=== PATIENT | female | born 1990 | race Caucasian/White ===

== ENCOUNTER 2017-04-29 11:18 | Emergency (ER) | payer MEDICAID, OTHER ==
[~2017-04-29] VITALS: Ht 182.9 cm; Wt 88.1 kg
[~2017-04-29 11:18] MED LIST: ALPR.5 PO; FAMO1TAB37 PO; MAGICADU2 SWISH-SWAL; PENI500T PO; ZOFR4TAB PO
[2017-04-29 11:21] VITALS: BP 137/77; PULSE 87; RESP 16; TEMP 98.6; O2SAT 100
[2017-04-29] MEDS ORDERED: SODIUM CHLOR 0.9% 1000 ML INJ 1,000 ML IV ONE (11:40)
[2017-04-29] MEDS ORDERED: KETOROLAC TROMETHAMINE 30 MG/ML (IVP) VIAL IVP ONE (11:45)
[2017-04-29] MEDS ORDERED: diphenhydrAMINE HCL 50 MG/ML VIAL IVP ONE (11:45)
[2017-04-29] MEDS ORDERED: ACETAMINOPHEN 325 MG TAB PO ONE (11:45)
[2017-04-29] MEDS ORDERED: SODIUM CHLORIDE 0.9% FLUSH 10 ML FLUSH IVF PRN (11:45)
[2017-04-29] MEDS ORDERED: PROCHLORPERAZINE INJ 10 MG/2 ML VIAL IVP ONE (11:45)
--- NOTE | 2017-04-29 11:56 | PD ---
HPI Chief Complaint: Headache Time Seen by Provider: 11:25 Travel History International Travel<30 days: No Contact w/Intl Traveler<30days: No Traveled to known affect area: No History of Present Illness HPI The patient is a 26-year-old female who presents to the emergency department for headache. 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 Headache is located the posterior aspect of the head, left occipital region, radiating to left paravertebral muscles. She notes limited range of motion with turning the head to the left, but denies any difficulty with flexion or extension of the neck. She denies any difficulty turning the head to the right. She does note mild photophobia and sensitivity to sounds. She does complain of mild nausea, secondary to , but denies any vomiting. She denies any history of migraines. The headache came on slowly while driving, initially was associated with sensitivity to light. She denies any fever, chills, or sweats. She denies any cough and cold symptoms. The headache waxes and wanes, worse in the morning, improves by 1:00 in the afternoon, but will return around 6 PM. She also notes sensitivity when looking at computer screens. She denies any history of brain tumors. She is currently is 7 weeks , has not taken any medications for her headache. [facility] Past Medical History Anxiety: Yes Depression: Yes ?: LMP: 03/13/17 : 2 Para: 1 Miscarriage: 1 Social History Alcohol Use: Yes Tobacco Use: No Substance Use: No Allergies-Medications (Allergen,Severity, Reaction): Coded Allergies: No Known Allergies (Unverified Adverse Reaction, Unknown, 04/29/17) Reported Meds & Prescriptions Reported Meds & Active Scripts Active Reported Plus Iron 29-1 mg ( Vit-Iron Carbonyl) 29 Mg Iron-1 Mg Tab 1 Tab PO DAILY Review of Systems Except as stated in HPI: all other systems reviewed are Neg General / Constitutional: No: Fever Eyes: Positive: Photophobia HENT: Positive: Neck Pain Cardiovascular: No: Chest Pain or Discomfort Respiratory: No: Shortness of Breath Gastrointestinal: Positive: Nausea, No: Vomiting, Abdominal Pain Musculoskeletal: No: Weakness Neurologic: Positive: Headache, No: Weakness, Dizziness, Focal Abnormalities, Change in Mentation, Slurred Speech, Paresthesia, Seizures, Sensory Disturbance Physical Exam Narrative GENERAL: Awake, alert, pleasant 26-year-old female who appears her stated age and is in no acute respiratory distress. SKIN: Focused skin assessment warm/dry. HEAD: Atraumatic. Normocephalic. EYES: Pupils equal and round. 3 mm bilateral and reactive. EOMs are intact. ENT: No nasal bleeding or discharge. Mucous membranes pink and moist. NECK: Trachea midline. No JVD. No meningeal signs. The patient is able to put her chin to her chest and look up and extend completely. She has full rotation to the right, limited range of motion to the left. Palpation the left paravertebral muscle actually improves her symptoms. CARDIOVASCULAR: Regular rate and rhythm. No murmur appreciated. RESPIRATORY: No accessory muscle use. Clear to auscultation. Breath sounds equal bilaterally. Back: No tenderness of the thoracic or lumbar vertebrae. She is able to fully flex and extend the thorax/lumbar region without pain. MUSCULOSKELETAL: No obvious deformities. No clubbing. No cyanosis. No edema. NEUROLOGICAL: Awake and alert. No obvious cranial nerve deficits. Motor grossly within normal limits. Normal speech. Nonfocal. Oriented 4. PSYCHIATRIC: Appropriate mood and affect; insight and judgment normal. Data Data Last Documented VS Vital Signs Date Time Temp Pulse Resp B/P (MAP) Pulse Ox O2 Delivery O2 Flow Rate FiO2 04/29/17 12:12 83 16 100 Room Air 04/29/17 11:21 98.6 137/77 (97) Orders Orders Ecg Monitoring (04/29/17 11:40) Iv Access Insert/Monitor (04/29/17 11:40) Oximetry (04/29/17 11:40) Sodium Chloride 0.9% Flush (Ns Flush) (04/29/17 11:45) Acetaminophen (Tylenol) (04/29/17 11:45) Ketorolac Inj (Toradol Inj) (04/29/17 11:45) Prochlorperazine Inj (Compazine Inj) (04/29/17 11:45) Diphenhydramine Inj (Benadryl Inj) (04/29/17 11:45) Sodium Chlor 0.9% 1000 Ml Inj (Ns 1000 M (04/29/17 11:40) Methylprednisolone So Succ Inj (Solumedr (04/29/17 12:30) Ed Discharge Order (04/29/17 12:42) [facility] Medical Decision Making Medical Screen Exam Complete: Yes Emergency Medical Condition: Yes Medical Record Reviewed: Yes Differential Diagnosis Differential diagnosis includes brain tumor, subarachnoid hemorrhage, migraine, tension headache, viral meningitis, bacterial meningitis, aseptic meningitis. Narrative Course IV was established and the patient was placed on cardiac telemetry monitoring and continuous pulse oximetry monitoring. I had a discussion with the patient regarding differentials and workups including CT of the brain without contrast, lumbar puncture, versus conservative management with medications and reassessment. After discussion, the patient would prefer conservative management with medications. I did discuss category B/C of the following medications including Benadryl, Compazine, Toradol, Solu-Medrol, and IV fluids. The patient was reevaluated at 12:40 PM, her headache had resolved. Patient does not want a CT or lumbar puncture at this time. She is advised to return if symptoms worsen or progress. She will be provided a work excuse for today. Diagnosis Primary Impression: Cephalgia Qualified Codes: R51 - Headache Patient Instructions: General Instructions Additional Instructions: Tylenol as needed for pain. Follow-up with your primary physician and freight rate analyst. Return if symptoms worsen or progress. Med/Other Pt SpecificInfo: No Change to Meds Disposition: 01 DISCHARGE HOME Condition: Stable Piotr Tafoya MD Apr 29, 2017 11:56
[2017-04-29 12:10] VITALS: RESP 16; O2SAT 100
[2017-04-29] MEDS ORDERED: PREN29TA PO (12:12)
[2017-04-29] MEDS ORDERED: methylPREDNISolone SOD SUCC 125 MG/2 ML VIAL IV PUSH ONE (12:30)
[2017-04-29 12:48] VITALS: RESP 16
[2017-04-29 13:01] VITALS: BP 132/69
== END 2017-04-29 13:04 | disposition home or self-care (01) ==
LOC: PHED 11:18
DX: O26.891 Other specified pregnancy related conditions, first trimester (principal); R51 Headache; H53.149 Visual discomfort, unspecified; R11.0 Nausea; Z86.59 Personal history of other mental and behavioral disorders; Z3A.01 Less than 8 weeks gestation of pregnancy
CPT/HCPCS: 96361; 96374; 96375; 99284; J0780; J1200; J1885; J7030